=== PATIENT | male | born 1930 | race Two or more races ===

== ENCOUNTER 2020-01-10 12:09 | Emergency (ER) | payer MEDICARE, OTHER ==
[~2020-01-10] VITALS: Ht 172.7 cm; Wt 72.0 kg
[2020-01-10 14:47] LABS: BILIRUBIN,URINE SMALL (NEG); CLARITY,URINE CLEAR; NITRITE,URINE NEGATIVE (NEG); PH,URINE 5.5 (<5.0-8.0); PROTEIN,URINE 100 mg/dL (NEG-TRACE); UROBILINOGEN,URINE 0.2 mg/dL (0.2 mg/dL)
[2020-01-10 14:48] LABS: COLOR,URINE YELLOW
[2020-01-10 14:54] LABS: GRANULAR CASTS,URINE FEW /HPF; HYALINE CASTS, URINE MANY /HPF
[2020-01-10 14:55] LABS: AMORPHOUS SEDIMENT,UR PRESENT /HPF; BACTERIA,URINE FEW /HPF (0-FEW)
--- NOTE | 2020-01-10 15:02 | RAD ---
PORTABLE CHEST 1V Clinical History: Reason: fever / Spl. Instructions: / History: Technique: AP view of the chest was obtained at 01/10/2020 1:59 PM. Comparison: None. Findings: Mediastinal wires are seen. Increased reticular opacities of lungs is likely chronic pulmonary fibrosis. The pulmonary vessels appear normal. The pleural margins are clear. Impression: No evidence of an acute cardiopulmonary process. Electronically signed by: Clyde Maya III, MD (01/10/2020 2:59 PM) [facility]
[2020-01-10 15:25] LABS: BASO % 0 % (0-3); EOS % 0 % (0-3); HEMATOCRIT 42.9 % (39.0-53.0); HEMOGLOBIN 14.6 g/dL (13.0-17.5); LYMPH # 0.6 x10^3/uL (1.0-4.8); LYMPH % 12 % (24-48); MEAN CORPUSCULAR HEMOGLOBIN 31 pg (25-35); MEAN CORPUSCULAR HGB CONC 34 g/dL (31-37); MEAN CORPUSCULAR VOLUME 90 fL (79-100); MONO # 0.4 x10^3/uL (0.0-1.1); MONO % 8 % (0-9); NEUT # 3.8 x10^3/uL (1.8-7.7); NEUT % 80 % (31-73); PLATELET COUNT 136 x10^3/uL (140-400); RED BLOOD COUNT 4.77 x10^6/uL (4.30-5.70); RED CELL DISTRIBUTION WIDTH 13.9 % (11.5-14.5); WHITE BLOOD COUNT 4.8 x10^3/uL (4.0-11.0)
[2020-01-10 15:38] LABS: PROTHROMBIN TIME PATIENT 13.6 SEC (11.7-14.0)
[2020-01-10 15:50] LABS: CALCIUM 8.5 mg/dL (8.5-10.1); CREATININE 1.6 mg/dL (0.7-1.3); POTASSIUM 3.2 mmol/L (3.5-5.1)
[2020-01-10 15:55] LABS: ALBUMIN 2.9 g/dL (3.4-5.0); ALBUMIN/GLOBULIN RATIO 0.9 (1.0-1.7); MAGNESIUM 2.1 mg/dL (1.8-2.4); TOTAL BILIRUBIN 0.7 mg/dL (0.2-1.0); TOTAL PROTEIN 6.3 g/dL (6.4-8.2)
[2020-01-10] MEDS ORDERED: IV NORMAL SALINE 1000ML BAG 1,000 ML IV ONE (16:45)
[2020-01-10] MEDS ORDERED: POTASSIUM CHLORIDE 20 MEQ TABLET.ER. PO ONE (16:45)
--- NOTE | 2020-01-10 16:52 | PHYS DOC ---
Past Medical History Past Medical History: High Cholesterol, Hypertension Past Surgical History: Other Additional Past Surgical Histo: CATARACTS Smoking Status: Never Smoker Alcohol Use: None General Adult EDM: Chief Complaint: MULTIPLE COMPLAINTS HPI: HPI: Patient is a 89 year old male patient who presents to the ED today complaining of fever chills and a cough that began Gilles. Patient reports the son is a doctor and give him a prescription for Levaquin. He is still taking the Levaquin. Denies any chest pain or shortness of breath. He is a poor historian. Review of Systems: Review of Systems: Constitutional: Reports fever, chills Eyes: Denies change in visual acuity. [] HENT: Denies nasal congestion or sore throat. [] Respiratory: Reports cough, denies shortness of breath. [] Cardiovascular: Denies chest pain or edema. [] GI: Denies abdominal pain, nausea, vomiting, bloody stools or diarrhea. [] : Denies dysuria. [] Musculoskeletal: Denies back pain or joint pain. [] Integument: Denies rash. [] Neurologic: Denies headache, focal weakness or sensory changes. [] Psychiatric: Denies depression or anxiety. [] Heart Score: Risk Factors: Risk Factors: DM, Current or recent (<one month) smoker, HTN, HLP, family history of CAD, obesity. Risk Scores: Score 0 - 3: 2.5% MACE over next 6 weeks - Discharge Home Score 4 - 6: 20.3% MACE over next 6 weeks - Admit for Clinical Observation Score 7 - 10: 72.7% MACE over next 6 weeks - Early Invasive Strategies Current Medications: Current Medications Medications (Trade) Dose Ordered Sig/Berta Start Time Stop Time Status Last Admin Dose Admin Potassium Chloride (Klor-Con) 40 meq 1X ONCE 01/10/20 16:45 01/10/20 16:46 DC Sodium Chloride 1,000 ml @ 1,000 mls/hr 1X ONCE 01/10/20 16:45 01/10/20 17:44 Allergies: Allergies: Allergies Coded Allergies Type Severity Reaction Last Updated Verified Penicillins Allergy Unknown 01/10/20 Yes Physical Exam: PE: Constitutional: Well developed, well nourished, no acute distress, non-toxic appearance. [] HENT: Normocephalic, atraumatic, bilateral external ears normal, oropharynx moist, no oral exudates, nose normal. [] Eyes: PERRLA, EOMI, conjunctiva normal, no discharge. [] Neck: Normal range of motion, no tenderness, supple, no stridor. [] Cardiovascular:Heart rate regular rhythm, no murmur [] Lungs & Thorax: Bilateral breath sounds clear to auscultation [] Abdomen: Bowel sounds normal, soft, no tenderness, no masses, no pulsatile masses. [] Skin: Warm, dry, no erythema, no rash. [] Back: No tenderness, no CVA tenderness. [] Extremities: No tenderness, no cyanosis, no clubbing, ROM intact, no edema. [] Neurologic: Alert and oriented X 3, normal motor function, normal sensory function, no focal deficits noted. [] Psychologic: Affect normal, judgement normal, mood normal. [] Current Patient Data: Labs: Laboratory Tests Test 01/10/20 14:25 01/10/20 14:30 White Blood Count 4.8 x10^3/uL (4.0-11.0) Red Blood Count 4.77 x10^6/uL (4.30-5.70) Hemoglobin 14.6 g/dL (13.0-17.5) Hematocrit 42.9 % (39.0-53.0) Mean Corpuscular Volume 90 fL (79-100) Mean Corpuscular Hemoglobin 31 pg (25-35) Mean Corpuscular Hemoglobin Concent 34 g/dL (31-37) Red Cell Distribution Width 13.9 % (11.5-14.5) Platelet Count 136 x10^3/uL (140-400) L Neutrophils (%) (Auto) 80 % (31-73) H Lymphocytes (%) (Auto) 12 % (24-48) L Monocytes (%) (Auto) 8 % (0-9) Eosinophils (%) (Auto) 0 % (0-3) Basophils (%) (Auto) 0 % (0-3) Neutrophils # (Auto) 3.8 x10^3/uL (1.8-7.7) Lymphocytes # (Auto) 0.6 x10^3/uL (1.0-4.8) L Monocytes # (Auto) 0.4 x10^3/uL (0.0-1.1) Eosinophils # (Auto) 0.0 x10^3/uL (0.0-0.7) Basophils # (Auto) 0.0 x10^3/uL (0.0-0.2) Prothrombin Time 13.6 SEC (11.7-14.0) Prothrombin Time INR 1.1 (0.8-1.1) Activated Partial Thromboplast Time 33 SEC (24-38) Sodium Level 138 mmol/L (136-145) Potassium Level 3.2 mmol/L (3.5-5.1) L Chloride Level 97 mmol/L (98-107) L Carbon Dioxide Level 32 mmol/L (21-32) Anion Gap 9 (6-14) Blood Urea Nitrogen 32 mg/dL (8-26) H Creatinine 1.6 mg/dL (0.7-1.3) H Estimated GFR (Cockcroft-Gault) 41.0 BUN/Creatinine Ratio 20 (6-20) Glucose Level 102 mg/dL (70-99) H Lactic Acid Level 2.8 mmol/L (0.4-2.0) H Calcium Level 8.5 mg/dL (8.5-10.1) Magnesium Level 2.1 mg/dL (1.8-2.4) Total Bilirubin 0.7 mg/dL (0.2-1.0) Aspartate Amino Transferase (AST) 55 U/L (15-37) H Alanine Aminotransferase (ALT) 45 U/L (16-63) Alkaline Phosphatase 47 U/L (46-116) Troponin I Quantitative < 0.017 ng/mL (0.000-0.055) PW-Hfg-T-Type Natriuretic Peptide 483 pg/mL (0-449) H Total Protein 6.3 g/dL (6.4-8.2) L Albumin 2.9 g/dL (3.4-5.0) L Albumin/Globulin Ratio 0.9 (1.0-1.7) L Procalcitonin 0.32 ng/mL (0.00-0.10) H Urine Collection Type Unknown Urine Color Yellow Urine Clarity Clear Urine pH 5.5 (<5.0-8.0) Urine Specific [place] 1.025 (1.000-1.030) Urine Protein 100 mg/dL (NEG-TRACE) Urine Glucose (UA) Negative mg/dL (NEG) Urine Ketones (Stick) Trace mg/dL (NEG) Urine Blood Negative (NEG) Urine Nitrite Negative (NEG) Urine Bilirubin Small (NEG) Urine Urobilinogen Dipstick 0.2 mg/dL (0.2 mg/dL) Urine Leukocyte Esterase Negative (NEG) Urine RBC 3-5 /HPF (0-2) Urine WBC 1-4 /HPF (0-4) Urine Amorphous Sediment Present /HPF Urine Bacteria Few /HPF (0-FEW) Urine Hyaline Casts Many /HPF Urine Granular Casts Few /HPF Urine Mucus Marked /LPF Laboratory Tests 01/10/20 14:25 Laboratory Tests 01/10/20 14:25 Vital Signs: Vital Signs Date Time Temp Pulse Resp B/P (MAP) Pulse Ox O2 Delivery O2 Flow Rate FiO2 01/10/20 13:38 97.5 95 18 138/75 (96) 95 Room Air 97.5 EKG: EK interpreted by Dr. Foster sinus rhythm HR 99 no STEMI[] Radiology/Procedures: Radiology/Procedures: []PROCEDURE: PORTABLE CHEST 1V PORTABLE CHEST 1V Clinical History: Reason: fever / Spl. Instructions: / History: Technique: AP view of the chest was obtained at 01/10/2020 1:59 PM. Comparison: None. Findings: Mediastinal wires are seen. Increased reticular opacities of lungs is likely chronic pulmonary fibrosis. The pulmonary vessels appear normal. The pleural margins are clear. Impression: No evidence of an acute cardiopulmonary process. Electronically signed by: Talya Dave III, MD (01/10/2020 2:59 PM) [facility] DICTATED and SIGNED BY: TALYA DAVE III, MD DATE: 01/10/20 1459 Course & Med Decision Making: Course & Med Decision Making Pertinent Labs and Imaging studies reviewed. (See chart for details) This is a 89-year-old male patient presenting to the ED today with fever chills and a cough that began on Friday. Patient is afebrile in the ED. Was tested for COVID-19. CBC with a normal WBC, CMP with potassium of 3.2, creatinine 1.6, BUN 32, patient was given oral potassium replacement. Urine analysis negative for infection. Chest x-ray with no acute findings. Lactic was 2.8, patient was given IV fluids Patient is doing very well in the ED. His vitals are stable. I spoke to Dr. Carlos Li who is patient's PCP as well as patient's son. He reports patient has been sick for 10 days. He states he already treated patient with the Zithromax and prednisone a couple days ago, he developed diarrhea and was put on Flagyl. He states he put patient on Levaquin on Friday which he is still taking up to now. He states patient's creatinine and BUN are within his baseline. He was okay with patient going home. Dragon Disclaimer: [employer] Disclaimer: This electronic medical record was generated, in whole or in part, using a voice recognition dictation system. Departure Departure Impression: Primary Impression: Fever Qualified Codes: R50.9 - Fever, unspecified Additional Impressions: Cough Person under investigation for COVID-19 Disposition: 01 DC HOME SELF CARE/HOMELESS Condition: STABLE Referrals: ASHLEIGH CHU (PCP) Follow-up as soon as possible Patient Instructions: Cough, Child, Fever, Child Additional Instructions: You were evaluated in the emergency room for fever, cough and chills. Your work-up in the emergency room was negative for any acute findings. Please follow-up with your son as soon as you can. You can take Tylenol /Motrin for pain or fever. Continue taking Levaquin. JERRELL HOUSE APRN Jan 10, 2020 16:51
[2020-01-10 17:30] VITALS: BP 143/73
--- NOTE | 2020-01-10 17:57 | EKG ---
[facility] [address] [place] [address] Test Date: 2020-01-10 Test Time: 14:17:41 Pat Name: NICHOLAS CHU Department: Room: Gender: M Senior [employer]er: : [id number] Requested By: JERRELL HOUSE Order Number: [id number] Reading MD: Kemar Blancas Measurements Intervals [place] Rate: 99 P: -34 WV: 176 QRS: 57 QRSD: 88 T: 48 QT: 328 QTc: 426 Interpretive Statements SINUS RHYTHM NORMAL ECG RI6.01 No previous ECG available for comparison Electronically Signed On 01-18-2020 12:22:30 AGER TENDER by Kemar Blancas
--- NOTE | 2020-01-12 09:12 | NUR ---
IP: Informed pt of positive COVID test and need to quarantine for 14 days. Pt verbalized understanding.
== END 2020-01-10 18:23 | disposition home or self-care (01) ==
LOC: ER 12:09
DX: U07.1 COVID-19 (principal); R50.9 Fever, unspecified; R05 Cough; E78.5 Hyperlipidemia, unspecified; I10 Essential (primary) hypertension; Z98.890 Other specified postprocedural states; Z88.0 Allergy status to penicillin; Z98.49 Cataract extraction status, unspecified eye
CPT/HCPCS: 36415; 71045; 80053; 81001; 83605; 83735; 83880; 84145; 84484; 85025; 85610; 85730; 87040; 93005; 96360; 99285; C9803; J7030; U0003